=== PATIENT | female | born 1930 | race Caucasian/White ===

== ENCOUNTER 2019-01-24 00:54 | Emergency (ER) | payer OTHER, BC ==
[~2019-01-24] VITALS: Ht 170.2 cm; Wt 54.9 kg
--- NOTE | ~2019-01-24 | EMS ---
[address] [address] EMS Patient Care Report Name: STEPHEN RAZO Room #: LIZBET Lassiter#: [id number] Admission: 01/24/19 Attend Phys: Discharge: 01/24/19 Date of : [birth year] Report #: [id number] THIS REPORT FOR: //name// Report Transmitted: 01/24/2019 03:19 EMS Care Summary [place], [place]/[facility] Incident [id number] @ 01/24/2019 00:20 Incident Location [address] Patient STEPHEN RAZO Female, 88 Years 1930 Patient Address [address] [place] [address] Patient History Hypertension, Patient Allergies Sulfa, Patient Medications Plavix, Chief Complaint Facial laceration Disposition Transported No Lights/[place] Dispatch Reason Falls Transported To [facility] Narrative 88 y/o female with a facial laceration. On arrival found pt sitting in chair in living room with [place] staff. Pt stated [facility] [address] [place] [address] EMS Patient Care Report Name: STEPHEN RAZO Room #: DEP Maikol#: [id number] Admission: 01/24/19 Attend Phys: Discharge: 01/24/19 Date of : [birth year] Report #: [id number] she had gotten up from her chair and thought she caught her foot in the chair legs and fell forward onto her face. Pt has a laceration about her left eye that the bleeding had stopped prior to EMS arrival. Pt denied losing consciousness. Pt had pain to her head, right side of her neck and a laceration to the second finger of her right hand. Pt stated that she goes to [facility]. EMS placed a c-collar, transferred pt to stretcher and into ambulance. Once in ambulance EMS placed an IV. EMS monitored pt/VS en route to [facility] ED. Transferred care of pt to [facility] ED RN without incident. Initial Vitals @00:44P: 75,BP: 164/74,CO: 9,SpO2: 99, @00:37P: 83,R: 20,BP: 179/78,Pain: 4/10,GCS: 15,SpO2: 100,Revised Trauma: 12, Assessments @00:30MENTAL:No Abnormalities,SKIN:No Abnormalities,HEENT:Head/Face: Other,Head/Face: LAC,LUNG SOUNDS:General: No Abnormalities,Left Upper: No Abnormalities,Right Upper: No Abnormalities,Left Lower: No Abnormalities,Right Lower: No Abnormalities,ABDOMEN:General: No Abnormalities,Left Upper: No Abnormalities,Right Upper: No Abnormalities,Left Lower: No Abnormalities,Right Lower: No Abnormalities,PELVIS//GI:No Abnormalities,EXTREMITIES:Right Arm: Other,Capillary Refill: Left Upper: < 2 Sec,Left Arm: No Abnormalities,Left Leg: No Abnormalities,Right Leg: No Abnormalities,PULSE:Radial: 2+ Normal,NEURO:No Abnormalities, Impression Injury Procedures @00:30ALS AssessmentResponse: UnchangedSucceeded@00:38Saline Lock 10cc (20 ga) Site: Antecubital-LeftResponse: UnchangedSucceeded@00:31Spinal Motion RestrictionResponse: UnchangedSucceeded Timeline 00:18,Call Received 00:18,Dispatch Notified 00:20,Dispatched 00:23,En Route 00:26,On Scene 00:30,At Patient 00:30,ALS Assessment,Response: UnchangedSucceeded, 00:31,Spinal Motion Restriction,Response: UnchangedSucceeded, 00:37,BP: 179/78 M,PULSE: 83,RR: 20 R,SPO2: 100 Ox,ETCO2: ,BG: ,PAIN: 4,GCS: 15, 00:38,Saline Lock 10cc 20 ga [facility]Response: [facility] [address] [place] [address] EMS Patient Care Report Name: STEPHNE RAZO Room #: DEP GORGE Lassiter#: [id number] Admission: 01/24/19 Attend Phys: Discharge: 01/24/19 Date of : [birth year] Report #: [id number] UnchangedSucceeded, 00:41,Depart Scene 00:44,BP: 164/74 M,PULSE: 75,RR: R,SPO2: 99 Ox,ETCO2: ,BG: ,PAIN: ,GCS: , 00:46,At Destination 01:06,Call Closed Disclaimer v1.1 Copyright 2019 [employer] This EMS Care Summary contains data elements from the applicable legal record (which may be displayed differently). It is designed to provide pertinent information for the following purposes: continuity of care, clinical quality, and state data reporting. The complete legal record is available to ED staff and administrators of the receiving hospital in [facility]'s Patient Tracker. All data is provided "as is."
[2019-01-24 03:29] VITALS: BP 136/45
== END 2019-01-24 03:25 | disposition home or self-care (01) ==
LOC: ER 00:54
DX: S61.210A Laceration without foreign body of right index finger without damage to nail, initial encounter (principal); S01.81XA Laceration without foreign body of other part of head, initial encounter; S61.411A Laceration without foreign body of right hand, initial encounter; J45.909 Unspecified asthma, uncomplicated; M06.9 Rheumatoid arthritis, unspecified; I10 Essential (primary) hypertension; Z88.8 Allergy status to other drugs, medicaments and biological substances; Z88.2 Allergy status to sulfonamides; W01.0XXA Fall on same level from slipping, tripping and stumbling without subsequent striking against object, initial encounter; Y93.89 Activity, other specified; Y92.89 Other specified places as the place of occurrence of the external cause; Y99.9 Unspecified external cause status